=== PATIENT | female | born 1935 | race Caucasian/White ===

== ENCOUNTER 2021-10-07 13:01 | Inpatient (IN) | payer MEDICARE, OTHER ==
[~2021-10-07] VITALS: Ht 157.5 cm; Wt 54.4 kg
[~2021-10-07 13:01] MED LIST: IBUPROFEN PO; LEVOTHYROXINE50 MCG PO; METOPROLOL SUC100 MG PO; VITAMIN D31250 MCG PO
[2021-10-07 14:49] LABS: HEMOGLOBIN 14.2 gm/dl (12.3-15.3); RED BLOOD COUNT 4.8 M/UL (4.00-5.10); WHITE BLOOD COUNT 8.5 K/UL (4.5-11.0)
[2021-10-07 15:10] LABS: BUN/CREATININE RATIO 24 (0-10)
[2021-10-07] MEDS ORDERED: KLONOPIN0.5 MG PO (18:21)
[2021-10-07] MEDS ORDERED: VITAMIN B-121000 MCG PO (18:21)
[2021-10-07] MEDS ORDERED: DONEPEZIL HCL5 MG PO (18:21)
--- NOTE | 2021-10-07 23:55 | NUR ---
2345- PLACED KNEE HIGH MEDIUM SCDS ON THE PATIENT'S BILATERAL LOWER EXTREMITIES.
--- NOTE | 2021-10-08 01:45 | NUR ---
2225- Made numerous attempts to contact next of kin to the patient using numbers off the facesheet and in [employer] under emergency contact all numbers were either disconnected or the wrong number. I am unable to obtain history on the patient due to the patient being a poor historian. Pt is only alert to self. Was able to complete a physical assessment on the patient but unable to complete the entire admission process and medication list. Will pass off this information to the upcoming dayshift RN in the am.
[2021-10-08 02:57] LABS: HEMOGLOBIN 13.1 gm/dl (12.3-15.3); RED BLOOD COUNT 4.44 M/UL (4.00-5.10); WHITE BLOOD COUNT 8.9 K/UL (4.5-11.0)
[2021-10-08 03:26] LABS: BUN/CREATININE RATIO 22 (0-10)
[2021-10-09 08:03] LABS: BUN/CREATININE RATIO 28 (0-10)
[2021-10-09 08:16] LABS: HEMOGLOBIN 12.6 gm/dl (12.3-15.3); RED BLOOD COUNT 4.3 M/UL (4.00-5.10); WHITE BLOOD COUNT 9.8 K/UL (4.5-11.0)
[2021-10-10 06:18] LABS: HEMOGLOBIN 11.6 gm/dl (12.3-15.3); RED BLOOD COUNT 3.97 M/UL (4.00-5.10); WHITE BLOOD COUNT 9.8 K/UL (4.5-11.0)
[2021-10-10 06:40] LABS: BUN/CREATININE RATIO 31 (0-10)
[2021-10-11 04:43] LABS: HEMOGLOBIN 11.1 gm/dl (12.3-15.3); RED BLOOD COUNT 3.77 M/UL (4.00-5.10)
[2021-10-11 04:54] LABS: BUN/CREATININE RATIO 32 (0-10)
[2021-10-12 11:41] LABS: HEMOGLOBIN 11.1 gm/dl (12.3-15.3); RED BLOOD COUNT 3.8 M/UL (4.00-5.10)
[2021-10-12 11:49] LABS: WHITE BLOOD COUNT 4.5 K/UL (4.5-11.0)
[2021-10-12 12:03] LABS: BUN/CREATININE RATIO 30 (0-10)
[2021-10-13 08:25] LABS: HEMOGLOBIN 10.9 gm/dl (12.3-15.3); RED BLOOD COUNT 3.71 M/UL (4.00-5.10); WHITE BLOOD COUNT 6.1 K/UL (4.5-11.0)
[2021-10-13 08:52] LABS: BUN/CREATININE RATIO 32 (0-10)
[2021-10-14 06:44] LABS: HEMOGLOBIN 11.5 gm/dl (12.3-15.3); RED BLOOD COUNT 3.9 M/UL (4.00-5.10); WHITE BLOOD COUNT 6.8 K/UL (4.5-11.0)
[2021-10-14 07:05] LABS: BUN/CREATININE RATIO 40 (0-10)
--- NOTE | 2021-10-14 09:25 | NUR ---
Patient refuses telemetry, medications, and ultrasound this morning. MD made aware, no new orders at this time.
[2021-10-15 06:51] LABS: HEMOGLOBIN 11.6 gm/dl (12.3-15.3); RED BLOOD COUNT 3.97 M/UL (4.00-5.10); WHITE BLOOD COUNT 6.5 K/UL (4.5-11.0)
[2021-10-15 07:14] LABS: BUN/CREATININE RATIO 45 (0-10)
[2021-10-16 03:46] LABS: HEMOGLOBIN 11.5 gm/dl (12.3-15.3); RED BLOOD COUNT 3.9 M/UL (4.00-5.10); WHITE BLOOD COUNT 5.6 K/UL (4.5-11.0)
[2021-10-16 04:25] LABS: BUN/CREATININE RATIO 38 (0-10)
[2021-10-16] MEDS ORDERED: ROXICODONE TAB 55 MG PO (17:31)
[2021-10-16] MEDS ORDERED: ELIQUIS 2.5 MG2.5 MG PO (17:31)
[2021-10-16] MEDS ORDERED: KLONOPIN0.5 MG PO (17:31)
[2021-10-16] MEDS ORDERED: DOCUSATE SODIU100 MG PO (17:31)
[2021-10-16] MEDS ORDERED: SENNA LAX8.6 MG PO (17:31)
[2021-10-17] MEDS ORDERED: KLONOPIN0.5 MG PO (10:16)
== END 2021-10-17 17:30 | DRG 522 ==
LOC: ER1 13:01 → M/S 17:47 → CDU 17:47 → M/S 22:25
PROVIDERS: Emergency Medicine; Internal Medicine; Orthopaedic Surgery; Physician Assistant; ADMIT Internal Medicine
PROC: 0SRS0JZ Replacement of Left Hip Joint, Femoral Surface with Synthetic Substitute, Open Approach (ICD-10-PCS; principal; 2021-10-08 13:20)
PROC: 0HBRXZZ Excision of Toe Nail, External Approach (ICD-10-PCS; 2021-10-14)
PROC: 0HBRXZZ Excision of Toe Nail, External Approach (ICD-10-PCS; 2021-10-14)
PROC: 0HBRXZZ Excision of Toe Nail, External Approach (ICD-10-PCS; 2021-10-14)
PROC: 0HBRXZZ Excision of Toe Nail, External Approach (ICD-10-PCS; 2021-10-14)
PROC: 0HBRXZZ Excision of Toe Nail, External Approach (ICD-10-PCS; 2021-10-14)
PROC: 0HBRXZZ Excision of Toe Nail, External Approach (ICD-10-PCS; 2021-10-14)
PROC: 0HBRXZZ Excision of Toe Nail, External Approach (ICD-10-PCS; 2021-10-14)
PROC: 0HBRXZZ Excision of Toe Nail, External Approach (ICD-10-PCS; 2021-10-14)
PROC: 0HBRXZZ Excision of Toe Nail, External Approach (ICD-10-PCS; 2021-10-14)
PROC: 0HBRXZZ Excision of Toe Nail, External Approach (ICD-10-PCS; 2021-10-14)
DX: S72.012A Unspecified intracapsular fracture of left femur, initial encounter for closed fracture (principal); E87.1 Hypo-osmolality and hyponatremia; E87.0 Hyperosmolality and hypernatremia; W01.0XXA Fall on same level from slipping, tripping and stumbling without subsequent striking against object, initial encounter; L60.2 Onychogryphosis; I73.9 Peripheral vascular disease, unspecified; Z66 Do not resuscitate; Z20.822 Contact with and (suspected) exposure to COVID-19; F17.210 Nicotine dependence, cigarettes, uncomplicated; M20.62 Acquired deformities of toe(s), unspecified, left foot; M20.61 Acquired deformities of toe(s), unspecified, right foot; L60.3 Nail dystrophy; E03.9 Hypothyroidism, unspecified; H91.90 Unspecified hearing loss, unspecified ear; I10 Essential (primary) hypertension; I95.9 Hypotension, unspecified; R74.01 Elevation of levels of liver transaminase levels; E78.5 Hyperlipidemia, unspecified; N28.89 Other specified disorders of kidney and ureter; I49.5 Sick sinus syndrome; F03.90 Unspecified dementia, unspecified severity, without behavioral disturbance, psychotic disturbance, mood disturbance, and anxiety; Z85.828 Personal history of other malignant neoplasm of skin; Z95.0 Presence of cardiac pacemaker; Z79.01 Long term (current) use of anticoagulants; Z90.710 Acquired absence of both cervix and uterus; Z83.3 Family history of diabetes mellitus; Y92.009 Unspecified place in unspecified non-institutional (private) residence as the place of occurrence of the external cause; Z79.899 Other long term (current) drug therapy
CPT/HCPCS: 36415; 51702; 70450; 71045; 72125; 72170; 73130; 73501; 73502; 76000; 76705; 80048; 80053; 81001; 82550; 82553; 83605; 83874; 84484; 85025; 85027; 85610; 87040; 93005; 97110; 97110-GP-CQ; 97116; 97116-GP-CQ; 97162; 97166; 97530; 97530-GP-CQ; 99285; C1776; J0690; J1100; J2270; J2405; J2704; J2710; J2795; J3010; J7030; J7050; J7120; U0002

== ENCOUNTER → 2021-12-03 | Day surgery (SDC) | payer MEDICARE, OTHER ==
[~2021-12-03] MED LIST changes: +DOCUSATE SODIU100 MG PO; +DONEPEZIL HCL5 MG PO; +ELIQUIS 2.5 MG2.5 MG PO; +KLONOPIN0.5 MG PO; +MIRTAZAPINE7.5 MG PO; +MUPIROCIN30 GM TP; +ROXICODONE TAB 55 MG PO; +SENNA LAX8.6 MG PO; +VITAMIN B-121000 MCG PO
== END | disposition home or self-care (01) ==
LOC: OR 06:23
DX: C44.622 Squamous cell carcinoma of skin of right upper limb, including shoulder (principal); C44.311 Basal cell carcinoma of skin of nose; L57.0 Actinic keratosis; I10 Essential (primary) hypertension; I48.91 Unspecified atrial fibrillation; F17.210 Nicotine dependence, cigarettes, uncomplicated; I70.219 Atherosclerosis of native arteries of extremities with intermittent claudication, unspecified extremity; K21.9 Gastro-esophageal reflux disease without esophagitis; E78.00 Pure hypercholesterolemia, unspecified; E78.5 Hyperlipidemia, unspecified; E03.9 Hypothyroidism, unspecified; Z88.8 Allergy status to other drugs, medicaments and biological substances; Z20.822 Contact with and (suspected) exposure to COVID-19; Z79.82 Long term (current) use of aspirin
CPT/HCPCS: 93005; J0690; J1100; J2001; J2370; J2405; J2704; J3010; J7120; U0002